=== PATIENT | male | born 1995 | race Caucasian/White ===

== ENCOUNTER 2016-11-17 16:15 | Emergency (ER) | payer BC ==
[~2016-11-17] VITALS: Ht 175.3 cm; Wt 77.2 kg
[2016-11-17 16:22] VITALS: BP 125/77; TEMP 36.7; Ht 175.3 cm; Wt 77.2 kg
[2016-11-17] MEDS ORDERED: DIPHTHERIA/TETANUS/PERTUSSIS 0.5 ML SYR/VIAL IM. ONE (16:45)
[2016-11-17] MEDS ORDERED: XYLOCAINE 1%/SOD BICARB 20 ML VIAL INFIL ONE (16:45)
--- NOTE | 2016-11-17 16:52 | DIAGNOSTIC IMAGING REPORT ---
RIGHT WRIST MIN 3 VIEWS ROUTINE HISTORY: 21 years-old Male acute laceration of the right wrist. COMPARISON: None available TECHNIQUE: 3 views of the right wrist. FINDINGS: There is no acute fracture, dislocation or significant degenerative changes. Mild soft tissue swelling is seen about the wrist. No radiopaque foreign body. Incidental note is made of focal sclerosis/cortical thickening of the medial aspect distal radial shaft, 2.1 x 0.9 cm, likely benign. IMPRESSION: 1. No acute bony abnormality. 2. Mild soft tissue swelling about the wrist without radiopaque foreign body. 3. Incidental note is made of focal sclerosis/cortical thickening of the medial aspect distal radial shaft, 2.1 x 0.9 cm, likely benign. The above report was generated using voice recognition software. It may contain grammatical, syntax or spelling errors. Electronically signed by: Sarbjit Real M.D. 11/17/2016 4:51 PM Dictated Date/Time: 11/17/2016 4:47 PM
[2016-11-17] MEDS ORDERED: CEPH500C PO (17:25)
[2016-11-17] MEDS ORDERED: TRAM-10 PO (17:25)
[2016-11-17 17:34] VITALS: PULSE 80; O2SAT 99
--- NOTE | 2016-11-17 17:41 | EMERGENCY ROOM VISIT NOTE ---
History First contact with patient: 16:26 Chief Complaint: LACERATION/CUT (NON-SUTURE) Stated Complaint: PAINFUL CUT TO RT HAND Nursing Triage Summary: Patient ambulatory to triage with a steady and upright gait, states "I put my right hand through a window on Thursday around lunch time. 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 The patient reports that he was attempting to push up a garage door when the window broke and cut his wrist. He denies any paresthesias or numbness of the hand or fingers. The patient is [id number]. He does not recall when his last tetanus immunization was administered, but believes that it has been less than 10 years. The patient denies any significant bleeding from the wound. Review of Systems 10 system review was performed and was negative except for pertinent positives and negatives as indicated in history of present illness Past Medical/Surgical History Medical Problems: (1) H/O bee sting allergy Family History Gallbladder disease Social History Smoking Status: Current Every Day Smoker Marital Status: single Occupation Status: employed Current/Historical Medications Scheduled Cephalexin Monohydrate (Keflex), 500 MG PO TID Fluoxetine (Prozac), 20 MG PO DAILY Scheduled PRN Tramadol (Ultram), 1-2 TAB PO Q4H PRN for Pain Physical Exam Vital Signs Date Time Temp Pulse Resp B/P (MAP) Pulse Ox O2 Delivery O2 Flow Rate FiO2 11/17/16 17:34 80 16 99 11/17/16 16:22 36.7 98 16 125/77 100 Room Air Physical Exam CONSTITUTIONAL: Healthy and well nourished. Alert and oriented X 3 with positive affect. HEENT: Normocephalic, atraumatic. Pupils equal, round and reactive. NECK: Full active range of motion without discomfort. MUSCULOSKELETAL: Examination shows a 3 cm gaping laceration over the ulnar wrist region. The patient is able to flex and extend all fingers against resistance. Capillary refill of the fingers is less than 2 seconds. The patient has no tenderness to palpation through the carpal canal region. No obvious glass foreign body is noted within the wound. No significant erythema or purulent drainage. INTEGUMENTARY: No rash or other significant dermatologic conditions noted. NEUROLOGIC: No focal neurologic deficits noted. Right hand and fingers are sensory intact. Medical Decision & Procedures ER Provider Diagnostic Interpretation: My interpretation of right wrist x-rays does not show any obvious bony lacerations or obvious radiopaque foreign bodies. Radiologist report is as follows: RIGHT WRIST MIN 3 VIEWS ROUTINE HISTORY: 21 years-old Male acute laceration of the right wrist. COMPARISON: None available TECHNIQUE: 3 views of the right wrist. FINDINGS: There is no acute fracture, dislocation or significant degenerative changes. Mild soft tissue swelling is seen about the wrist. No radiopaque foreign body. Incidental note is made of focal sclerosis/cortical thickening of the medial aspect distal radial shaft, 2.1 x 0.9 cm, likely benign. IMPRESSION: 1. No acute bony abnormality. 2. Mild soft tissue swelling about the wrist without radiopaque foreign body. 3. Incidental note is made of focal sclerosis/cortical thickening of the medial aspect distal radial shaft, 2.1 x 0.9 cm, likely benign. Medications Administered Medications (Trade) Dose Ordered Sig/Kole Route Start Time Stop Time Status Last Admin Dose Admin Diphtheria/ Pertussis/Tetanus Vacc (Adacel Inj) 0.5 ml ONCE ONCE IM. 11/17/16 16:45 11/17/16 16:46 DC 11/17/16 16:46 0.5 ML Procedure Wound exploration was performed under local anesthesia after receiving verbal consent from the patient. Using buffered 1% lidocaine without epinephrine, good local anesthesia was administered. Peripheral tissue was initially cleansed with iodine. Sterile field was created. Using care to avoid trauma to any underlying vasculature or nerves, the wound was probed with no obvious glass foreign body. There did appear to be a small subcutaneous opening at the proximal aspect of the laceration. I was unable to visualize any tendons through this region. It is noted the patient does have worsening pain with passive flexion and extension of the fourth and fifth fingers. The wound was then thoroughly irrigated, then loosely approximated using 4-0 nylon simple interrupted sutures 3. Bacitracin dressing was applied. ED Course Patient history and physical exam were performed. Nurse's notes were reviewed. Vital signs were reviewed and were normal. The patient was administered Adacel IM. X-rays of the right wrist were normal. Wound exploration was performed under local anesthesia, and the wound was grossly approximated using 4 -0 nylon simple interrupted sutures. Because the patient does have notable discomfort with any passive flexion or extension of the fourth and fifth fingers under local anesthesia, I did suggest that he follow-up with orthopedics for further reevaluation and management. The patient was provided contact information for [facility]. He was provided prescriptions for Keflex and Ultram. He was encouraged to alternate ibuprofen and Tylenol for baseline pain relief. A metal splint was applied to the fourth and fifth fingers to the fingers in flexion, and to remind him to minimize use of the hand until reevaluated by orthopedics. The patient was happy with plan of care , voiced understanding of all discharge instructions, and denied any significant pain at the conclusion of my exam. Medical Decision [place] Drug Monitoring Program Search Results: patient reviewed within database Blood Pressure Screening Patient's blood pressure: Normal blood pressure Impression Primary Impression: Laceration of left wrist with tendon involvement Departure Information Prescriptions Tramadol (Ultram) 50 Mg Tab 1-2 TAB PO Q4H Y for Pain, #20 TAB For Initial Treatment Prov: Fabian Amado PA 11/17/16 Cephalexin Monohydrate (Keflex) 500 Mg Cap 500 MG PO TID for 7 Days, #21 CAP Prov: Fabian Amado PA 11/17/16 Referrals Devika Ruth M.D. (MEDICAL) (PCP) Patient Instructions My [facility] Problem Qualifiers Primary Impression: Laceration of left wrist with tendon involvement Encounter type: initial encounter Qualified Codes: S61.512A - Laceration without foreign body of left wrist, initial encounter; S66.922A - Laceration of unspecified muscle, fascia and tendon at wrist and hand level, left hand, initial encounter
[2016-12-03] MEDS ORDERED: FLUO20CA35 PO (14:13)
== END 2016-11-17 17:34 | disposition home or self-care (01) ==
LOC: C.EDB 16:16 → C.EDD 17:34
DX: S61.512A Laceration without foreign body of left wrist, initial encounter (principal); S66.922A Laceration of unspecified muscle, fascia and tendon at wrist and hand level, left hand, initial encounter; W25.XXXA Contact with sharp glass, initial encounter; F17.200 Nicotine dependence, unspecified, uncomplicated; Z23 Encounter for immunization

== ENCOUNTER 2016-11-30 13:29 | Inpatient (IN) | payer BC, OTHER ==
[~2016-11-30] VITALS: Ht 177.8 cm; Wt 78.7 kg
[~2016-11-30 13:29] MED LIST changes: -FLUO20CA35 PO
[2016-11-30] MEDS ORDERED: NALOXONE HCL 0.4 MG/1 ML VIAL/CARP IV STA (14:33)
[2016-11-30 14:38] LABS: BASO % 0.3 %; BASO ABS # 0.02 K/uL (0-0.2); COMPLETE YES; EOS % 2.8 %; HEMATOCRIT 40.7 % (42-52); IG% 0.2 %; LYMPH % 24.4 %; LYMPH ABS # 1.46 K/uL (1.2-3.4); MEAN CELL VOLUME 87.9 fL (80-100); MEAN CORPUSCULAR HEMOGLOBIN 30.2 pg (25-34); MEAN CORPUSCULAR HGB CONC 34.4 g/dl (32-36); MONO % 13.4 %; NEUT % 58.9 %; PLATELET COUNT 163 K/uL (130-400); RED BLOOD COUNT 4.63 M/uL (4.7-6.1); WHITE BLOOD COUNT 5.98 K/uL (4.8-10.8)
[2016-11-30 14:45] LABS: URINE APPEARANCE CLEAR (CLEAR); URINE BILIRUBIN NEG (NEG); URINE COLOR YELLOW; URINE NITRITE NEG (NEG); URINE PH 6.5 (4.5-7.5); URINE SPECIFIC GRAVITY 1.022 (1.000-1.030); UROBILINOGEN NEG (NEG); ZZUR CULT IF INDIC CLEAN CATCH NO
[2016-11-30 14:46] LABS: MANUAL MICROSCOPIC REQUIRED? NO; REVIEW REQ? NO
[2016-11-30 14:59] LABS: BUN/CREATININE RATIO 11.9 (10-20); CALCIUM 9.4 mg/dl (8.5-10.1); CREATININE 0.79 mg/dl (0.60-1.40); POTASSIUM 3.7 mmol/L (3.5-5.1)
[2016-11-30 15:10] LABS: THYROID STIMULATING HORMONE 1.66 uIu/ml (0.300-4.500)
[2016-11-30 15:11] LABS: BENZODIAZEPINE, URINE POS (NEG); COCAINE,URINE NEG (NEG); PHENCYCLIDINE, URINE NEG (NEG)
[2016-11-30 15:28] LABS: ACETAMINOPHEN < 2 ug/ml (10-30)
--- NOTE | 2016-11-30 15:35 | EMERGENCY ROOM VISIT NOTE ---
History Report prepared by Curt: Samantha Taylor Under the Supervision of: Dr. Joan Wolff M.D. 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 The patient has a history of drug abuse. He has been using heroin since last year. He was in rehab earlier this year, but he started using again 4 months ago. He admits to using heroin and Xanax last night around 1000. He states that he had 2-3 bars of Xanax and multiple bags of heroin. He denies any drug use since. He was snorting the drugs. The last time he used IV drugs was 3 weeks ago. This morning, he had a DUI. The police found drug paraphernalia at his house. Just prior to being arrested by the police, his father found him holding a knife to his wrist. The patient does not remember hold the knife to his wrist. The patient denies any suicidal thoughts. Several weeks ago, he told his mother that he was going to kill himself. His girlfriend broke up with him this week. 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 Review of Systems See HPI for pertinent positives & negatives. A total of 10 systems reviewed and were otherwise negative. Past Medical & Surgical Medical Problems: (1) H/O bee sting allergy Family History Gallbladder disease Social History Smoking Status: Heavy Tobacco Smoker Marital Status: single Occupation Status: employed Current/Historical Medications Scheduled Fluoxetine (Prozac), 20 MG PO DAILY Allergies Coded Allergies: BEE STING (Verified Allergy, Intermediate, redness,swelling, 11/17/16) Physical Exam Vital Signs Date Time Temp Pulse Resp B/P (MAP) Pulse Ox O2 Delivery O2 Flow Rate FiO2 11/30/16 17:00 67 10 127/61 96 Room Air 11/30/16 16:00 70 12 131/62 95 Room Air 11/30/16 15:08 79 14 132/65 97 Room Air 11/30/16 14:15 72 11/30/16 13:51 36.6 88 16 165/75 97 Room Air Physical Exam Vital signs reviewed. General: Groggy-appearing male, in no significant distress. HEENT: No scleral icterus, constricted pupils bilaterally, neck supple. Atraumatic. Cardiovascular: Regular rate and rhythm, no extra sounds. Pulmonary: Clear to auscultation bilaterally, normal work of breathing. Abdomen: Soft, nontender, nondistended, positive bowel sounds. Musculoskeletal: Several track oreilly to bilateral upper extremities. No peripheral edema. Neurologic: Patient awake alert and oriented x 3 Skin: Warm, dry, no rash Psych: Patient denies suicidal thoughts, denies homicidal thoughts. Medical Decision & Procedures Laboratory Results 11/30/16 14:26 Red Blood Count 4.63, Mean Corpuscular Volume 87.9, Mean Corpuscular Hemoglobin 30.2, Mean Corpuscular Hemoglobin Concent 34.4, Mean Platelet Volume 12.0, Neutrophils (%) (Auto) 58.9, Lymphocytes (%) (Auto) 24.4, Monocytes (%) (Auto) 13.4, Eosinophils (%) (Auto) 2.8, Basophils (%) (Auto) 0.3, Neutrophils # (Auto ) 3.52, Lymphocytes # (Auto) 1.46, Monocytes # (Auto) 0.80, Eosinophils # (Auto ) 0.17, Basophils # (Auto) 0.02 11/30/16 14:26 Test 11/30/16 14:13 11/30/16 14:26 Urine Color YELLOW Urine Appearance CLEAR (CLEAR) Urine pH 6.5 (4.5-7.5) Urine Specific [place] 1.022 (1.000-1.030) Urine Protein NEG (NEG) Urine Glucose (UA) NEG (NEG) Urine Ketones NEG (NEG) Urine Occult Blood NEG (NEG) Urine Nitrite NEG (NEG) Urine Bilirubin NEG (NEG) Urine Urobilinogen NEG (NEG) Urine Leukocyte Esterase NEG (NEG) Urine Opiates Screen POS (NEG) Urine Methadone, Qualitative NEG (NEG) Urine Barbiturates NEG (NEG) Urine Phencyclidine (PCP) Level NEG (NEG) Ur Amphetamine/Methamphetamine NEG (NEG) MDMA (Ecstasy) Screen NEG (NEG) Urine Benzodiazepines Screen POS (NEG) Urine Cocaine Metabolite NEG (NEG) Urine Marijuana (THC) NEG (NEG) White Blood Count 5.98 K/uL (4.8-10.8) Red Blood Count 4.63 M/uL (4.7-6.1) Hemoglobin 14.0 g/dL (14.0-18.0) Hematocrit 40.7 % (42-52) Mean Corpuscular Volume 87.9 fL (80-100) Mean Corpuscular Hemoglobin 30.2 pg (25-34) Mean Corpuscular Hemoglobin Concent 34.4 g/dl (32-36) Platelet Count 163 K/uL (130-400) Mean Platelet Volume 12.0 fL (7.4-10.4) Neutrophils (%) (Auto) 58.9 % Lymphocytes (%) (Auto) 24.4 % Monocytes (%) (Auto) 13.4 % Eosinophils (%) (Auto) 2.8 % Basophils (%) (Auto) 0.3 % Neutrophils # (Auto) 3.52 K/uL (1.4-6.5) Lymphocytes # (Auto) 1.46 K/uL (1.2-3.4) Monocytes # (Auto) 0.80 K/uL (0.11-0.59) Eosinophils # (Auto) 0.17 K/uL (0-0.5) Basophils # (Auto) 0.02 K/uL (0-0.2) RDW Standard Deviation 41.5 fL (36.4-46.3) RDW Coefficient of Variation 13.0 % (11.5-14.5) Immature Granulocyte % (Auto) 0.2 % Immature Granulocyte # (Auto) 0.01 K/uL (0.00-0.02) Anion Gap 4.0 mmol/L (3-11) Est Creatinine Clear Calc Drug Dose 154.0 ml/min Estimated GFR () 149.8 Estimated GFR (Non- 129.3 BUN/Creatinine Ratio 11.9 (10-20) Calcium Level 9.4 mg/dl (8.5-10.1) Total Bilirubin 0.7 mg/dl (0.2-1) Direct Bilirubin 0.2 mg/dl (0-0.2) Aspartate Amino Transf (AST/SGOT) 25 U/L (15-37) Alanine Aminotransferase (ALT/SGPT) 24 U/L (12-78) Alkaline Phosphatase 83 U/L (45-117) Total Protein 6.7 gm/dl (6.4-8.2) Albumin 3.4 gm/dl (3.4-5.0) Thyroid Stimulating Hormone (TSH) 1.660 uIu/ml (0.300-4.500) Salicylates Level < 1.7 mg/dl (2.8-20) Acetaminophen Level < 2 ug/ml (10-30) Ethyl Alcohol mg/dL < 3.0 mg/dl (0-3) Laboratory results per my review. Medications Administered Medications (Trade) Dose Ordered Sig/Kole Route Start Time Stop Time Status Last Admin Dose Admin Naloxone HCl (Narcan Inj) 0.4 mg NOW STAT IV 11/30/16 14:33 11/30/16 14:34 DC 11/30/16 15:06 0.4 MG ED Course 1431: Past medical records reviewed. The patient was evaluated in room A7. A complete history and physical examination was performed. 1433: Narcan Inj 0.4 mg IV. 1734: The patient has a signed 302 statement on his chart. He is still sleeping even after the Narcan. 1800: The patient was signed out to Dr. Zuleta at the end of my shift. Medical Decision Differential diagnosis: Etiologies such as mood disorder, infection, hypoglycemia, electrolyte abnormalities, cardiac sources, intracerebral event, toxicologic, neurologic, as well as others were entertained. This patient was evaluated and appeared to be intoxicated. He admits to a combination of Xanax, methamphetamine and heroin overnight. Patient was given Narcan 0.4 mg IV without significant improvement. Laboratory work is fairly unrevealing. Patient was observed in the ER for the better part of 4 hours without significant improvement. He does wake up and answer questions appropriately however he falls asleep quickly. I do suspect that this is polysubstance abuse. At this time a petitioning statement was filed as the patient's had a knife to his wrist and has threatened suicidal action earlier this week. Upon further detox, the patient will be assessed from a mental health standpoint. Case will be signed out to Dr. Zuleta at the change of shift, please see his notes for final disposition. Medication Reconcilliation Current Medication List: was personally reviewed by me Blood Pressure Screening Patient's blood pressure: Normal blood pressure Blood pressure disposition: Did not require urgent referral Impression Primary Impression: Suicide gesture Additional Impression: Polysubstance abuse Scribe Attestation The scribe's documentation has been prepared under my direction and personally reviewed by me in its entirety. I confirm that the note above accurately reflects all work, treatment, procedures, and medical decision making performed by me. Departure Information Dispostion Still a Patient Referrals No Doctor, Assigned (PCP) Patient Instructions My [facility] Problem Qualifiers
[2016-11-30] MEDS ORDERED: FLUO20CA35 PO (17:03)
--- NOTE | 2016-11-30 20:42 | EMERGENCY ROOM VISIT NOTE ---
ED Visit Note First contact with patient: 18:15 This patient was initially seen by Dr. Wolff. The patient was brought here for suicidal ideation. He is awake and alert at this time. He does admit to using heroin and Xanax. 3 S. was unwilling to admit the patient initially until he was hospitalized through the medical service due to potential opiate withdrawal. I did discuss the case with Dr. Hines who will hospitalize the patient. Psychiatry will evaluate him on the floor.
[2016-11-30 21:25] VITALS: BP 122/72; PULSE 69; TEMP 36.3; O2SAT 96; Ht 177.8 cm; Wt 78.7 kg
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
[2016-11-30] MEDS ORDERED: ACETAMINOPHEN 325 MG TAB PO PRN (22:00)
[2016-11-30] MEDS ORDERED: ONDANSETRON INJ 2 MG/ML 2 ML VIAL IV PRN (22:00)
[2016-11-30] MEDS: NSS + 20MEQ KCL 1000ML 1,000 ML IV SCH (22:19)
[2016-11-30 23:05] VITALS: BP 112/65; PULSE 64; TEMP 36.3; O2SAT 95
[2016-12-01 03:01] VITALS: BP 112/63; PULSE 56; TEMP 36.6; O2SAT 95
[2016-12-01] MEDS: NSS + 20MEQ KCL 1000ML 1,000 ML IV SCH ×2 (06:00→14:09)
[2016-12-01 06:23] LABS: BASO % 0.4 %; BASO ABS # 0.02 K/uL (0-0.2); COMPLETE YES; EOS % 4.1 %; HEMATOCRIT 43.3 % (42-52); IG% 0.2 %; LYMPH ABS # 1.39 K/uL (1.2-3.4); MEAN CORPUSCULAR HEMOGLOBIN 28.9 pg (25-34); MEAN CORPUSCULAR HGB CONC 32.1 g/dl (32-36); MEAN PLATELET VOLUME 12.3 fL (7.4-10.4); MONO % 16.4 %; NEUT % 48.9 %; PLATELET COUNT 175 K/uL (130-400); RED BLOOD COUNT 4.81 M/uL (4.7-6.1); WHITE BLOOD COUNT 4.64 K/uL (4.8-10.8)
--- NOTE | 2016-12-01 06:41 | DIAGNOSTIC IMAGING REPORT ---
CT OF THE HEAD WITHOUT CONTRAST CLINICAL HISTORY: Head injury. Evaluate for bleed. COMPARISON STUDY: Head CT February 02, 2012. CT DOSE: 537.48 mGy.cm TECHNIQUE: Helical axial images of the head were obtained without IV contrast. Automated exposure control was utilized for the study. A dose lowering technique was utilized adhering to the principles of ALARA. FINDINGS: No acute intracranial hemorrhage, midline shift or mass effect is present. Brain volume is normal. Ventricular system is normal. Basilar cisterns are patent. There are no extra-axial collections. Lockhart-white differentiation is maintained. There is no calvarial fracture. IMPRESSION: 1. No acute intracranial findings. 2. No calvarial fracture. Electronically signed by: Chad Self M.D. 12/01/2016 6:40 AM Dictated Date/Time: 12/01/2016 6:38 AM
[2016-12-01 07:00] LABS: BUN/CREATININE RATIO 14.4 (10-20); CALCIUM 8.6 mg/dl (8.5-10.1); CREATININE 0.79 mg/dl (0.60-1.40); MAGNESIUM 1.9 mg/dl (1.8-2.4); POTASSIUM 3.8 mmol/L (3.5-5.1)
--- NOTE | 2016-12-01 07:00 | DIAGNOSTIC IMAGING REPORT ---
CHEST ONE VIEW PORTABLE CLINICAL HISTORY: 21 years-old Male presenting with drug overdose. TECHNIQUE: Portable upright view of the chest was obtained. COMPARISON: 04/23/2014. FINDINGS: Cardiomediastinal silhouette normal. Lungs and pleural spaces clear. Osseous structures normal. Upper abdomen normal. IMPRESSION: 1. No acute cardiopulmonary disease. Electronically signed by: Michael Allan M.D. 12/01/2016 6:58 AM Dictated Date/Time: 12/01/2016 6:57 AM
[2016-12-01 07:01] VITALS: BP 107/65; PULSE 82; TEMP 36.8; O2SAT 94
[2016-12-01 07:02] VITALS: BP 109/63; PULSE 57; TEMP 36.4; O2SAT 96
[2016-12-01 07:02] LABS: PHOSPHORUS 4.2 mg/dl (2.5-4.9)
--- NOTE | 2016-12-01 07:21 | DIAGNOSTIC IMAGING REPORT ---
CERVICAL SPINE 2 OR 3 VIEWS CLINICAL HISTORY: 21 years-old Male presenting with r/o injury, drug overdose. TECHNIQUE: Lateral, frontal, and open-mouth odontoid views of the cervical spine were obtained. COMPARISON: CT cervical spine from 2011. FINDINGS: The C7 vertebral body is fully visualized. Normal cervical lordosis. Vertebral bodies maintain normal height and alignment. Intervertebral disc spaces preserved. No radiographic evidence of acute fracture or subluxation. Normal predental interval. Lateral masses of C1 articulate normally with C2. No prevertebral soft tissue swelling. Lung apices clear. IMPRESSION: No radiographic evidence of acute osseous injury. Electronically signed by: Michael Allan M.D. 12/01/2016 7:19 AM Dictated Date/Time: 12/01/2016 7:17 AM
[2016-12-01 10:46] VITALS: BP 117/67; PULSE 61; TEMP 36.7; O2SAT 97
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
[2016-12-01 14:57] VITALS: BP 117/67; PULSE 61; TEMP 36.7; O2SAT 97
[2016-12-03 13:45] LABS: COD UR 463 NG/ML (CUTOFF=50); HYDROCOD UR NEGATIVE NG/ML (CUTOFF=50); HYDROMOR UR 111 NG/ML (CUTOFF=50); HYDROXYETHYLFLURAZEPAM CONF NEGATIVE NG/ML (CUTOFF=50); HYDROXYMIDAZOLAM NEGATIVE NG/ML (CUTOFF=50); HYDROXYTRIAZOLAM CONF NEGATIVE NG/ML (CUTOFF=50); MORPHINE UR >20000 NG/ML (CUTOFF=50); NORHYDROCODONE CONF UR NEGATIVE NG/ML (CUTOFF=50); OXYMORPH UR NEGATIVE NG/ML (CUTOFF=50); TEMAZEPAM CONF NEGATIVE NG/ML (CUTOFF=50)
[2016-12-03] MEDS ORDERED: FLUO20CA35 PO (14:13)
[2016-12-09 08:31] LABS: SYNTHETIC CANNABINOIDS QL URIN NEGATIVE (Negative)
== END 2016-12-01 19:00 | disposition home or self-care (01) | DRG 880 ==
LOC: EDBD 13:29 → C.EDA 13:30 → C.2T 20:32 → ENRESERV 20:44 → C.MED 12-01 13:52
PROVIDERS: ADMIT Internal Medicine; ATTEND Hospitalist
DX: R45.851 Suicidal ideations (principal); F17.200 Nicotine dependence, unspecified, uncomplicated; F19.10 Other psychoactive substance abuse, uncomplicated

== ENCOUNTER → 2016-11-30 | Outpatient (CLI) | payer OTHER ==
[~2016-11-30] MED LIST: FLUO20CA35 PO; TRAM-10 PO
== END | disposition home or self-care (01) ==
LOC: C.LAB 05:56
DX: Z02.83 Encounter for blood-alcohol and blood-drug test (principal)

== ENCOUNTER 2016-12-01 19:00 | Inpatient (IN) | payer BC ==
[~2016-12-01] VITALS: Ht 177.8 cm; Wt 79.7 kg
[~2016-12-01 19:00] MED LIST changes: +FLUO20CA35 PO; -TRAM-10 PO
[2016-12-01] MEDS ORDERED: ACETAMINOPHEN 325 MG TAB PO PRN (19:30)
[2016-12-01] MEDS ORDERED: MAGNESIUM HYDROXIDE SUSP 30 ML UDC PO PRN (19:30)
[2016-12-01] MEDS ORDERED: BISMUTH SUBSALICYLATE PER ML OMNICELL CHARGE PO PRN (19:30)
[2016-12-01] MEDS ORDERED: NURSING VERBAL MED ORDER ONE ×2 (19:30→19:45)
[2016-12-01] MEDS ORDERED: SODIUM CHLORIDE 0.65% NA SOLN 45 ML (OCEAN) PRN (19:30)
[2016-12-01] MEDS ORDERED: hydrOXYzine HCL 25 MG TAB PO PRN ×2 (19:30)
[2016-12-01] MEDS ORDERED: ALUMINUM/MAGNESIUM SUSP 30 ML UDC PO PRN (19:30)
[2016-12-01] MEDS ORDERED: CLONIDINE HCL 0.1 MG TAB PO PRN (19:30)
[2016-12-01 19:44] VITALS: BP 128/78; PULSE 65; TEMP 36.5; Ht 177.8 cm; Wt 79.7 kg
[2016-12-01 20:29] VITALS: BP 132/87; PULSE 73
[2016-12-01] MEDS: CLONIDINE HCL 0.1 MG TAB PO SCH (20:31)
[2016-12-01] MEDS ORDERED: NICOTINE 21 MG/24 HR TDSY EXT ONE (21:15)
[2016-12-01] MEDS: NICOTINE POLACRILEX 2 MG GUM MT PRN (21:18)
[2016-12-02 07:02] VITALS: BP_SYST 124; BP_SYST 126; BP_DIAS 71; BP_DIAS 80; PULSE 67; PULSE 86; TEMP 36.6
[2016-12-02] MEDS ORDERED: LORAZEPAM 1 MG TAB PO PRN (08:45)
[2016-12-02] MEDS ORDERED: GABAPENTIN 600 MG TAB PO SCH (08:45)
[2016-12-02] MEDS: FLUOXETINE HCL 20 MG CAP PO SCH (09:07)
[2016-12-02] MEDS: NICOTINE 21 MG/24 HR TDSY EXT SCH (09:07)
[2016-12-02] MEDS: CLONIDINE HCL 0.1 MG TAB PO SCH ×4 (09:07→20:30)
[2016-12-02 09:08] VITALS: BP 133/71; PULSE 90; TEMP 36.6
[2016-12-02] MEDS ORDERED: GABAPENTIN 1200MG LOADING DOSE PO ONE (09:30)
[2016-12-02 12:23] VITALS: BP 132/74; PULSE 96; TEMP 36.6
[2016-12-02] MEDS: NICOTINE POLACRILEX 2 MG GUM MT PRN ×2 (13:46→20:34)
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
[2016-12-02 16:11] VITALS: BP_SYST 145; BP_SYST 146; BP_DIAS 74; BP_DIAS 95; PULSE 79; TEMP 37
[2016-12-02] MEDS: GABAPENTIN 600MG Q6H DOSE PO SCH ×2 (16:13→20:29)
[2016-12-02] MEDS: DIPHENOXYLATE/ATROPINE 2.5/0.025MG TAB PO PRN ×2 (16:14→20:30)
[2016-12-02 20:23] VITALS: BP 130/74; PULSE 77; TEMP 36.8
[2016-12-03] MEDS: GABAPENTIN 600MG Q8H DOSE PO SCH ×2 (05:38→13:35)
[2016-12-03 06:53] VITALS: BP_SYST 121; BP_SYST 122; BP_DIAS 68; BP_DIAS 73; PULSE 44; PULSE 71; TEMP 36.8
[2016-12-03] MEDS: CLONIDINE HCL 0.1 MG TAB PO SCH ×2 (08:58→12:19)
[2016-12-03] MEDS: NICOTINE 21 MG/24 HR TDSY EXT SCH (08:58)
[2016-12-03] MEDS: DIPHENOXYLATE/ATROPINE 2.5/0.025MG TAB PO PRN (08:59)
[2016-12-03] MEDS: FLUOXETINE HCL 20 MG CAP PO SCH (08:59)
[2016-12-03 09:00] VITALS: BP 125/80; PULSE 86; TEMP 36.6
--- NOTE | 2016-12-03 10:47 | Psychiatric Progress Notes ---
Progress Note Date of Service Dec 03, 2016. Interval History Steve Vega is a 21-year-old male who currently lives in [place], has a history of depression and polysubstance abuse (benzos and heroin), and was admitted on 302 involuntary commitment from the medical floor after he was brought to the ED by the police for AMS after taking large amounts of Xanax and heroin. Chief Complaint "Tired". Subjective Patient was seen & assessed interval progress reviewed with Treatment Team. Staff report he rates his mood and 8 out of 10, but appears flat, and spent most of the shift in his bed. He remains willing for rehabilitation, and would like to return to [facility]. He has a family meeting scheduled with his parents this morning, and they visited last evening, and he felt it went well. This morning, he is seen in his bed, as he states he is not feeling well and is having withdrawal symptoms. He was able to eat breakfast, and denies vomiting. He reports diarrhea, shakes, cold sweats, and fatigue. He states the as needed medications are helping with his symptoms. Sleep was "pretty good." He states his mood is improved, "more hopeful." He denies suicidal thoughts, and is hopeful that he will be accepted at rehabilitation. Sleep Information Total Hours of Sleep: 6.50 Meal Information Percent of Breakfast Consumed: 100 Percent of Lunch Consumed: 100 Percent of Dinner Consumed: 75 Mental Status Exam During interview pt is: alert and oriented, cooperative Appearance: appropriately dressed, appropriately groomed Eye contact is: fair Motor behavior is: no abnormal motor movements Speech: normal in rate, rhythm & volume Affect: depressed, constricted Mood is: depressed, other ("getting better, more hopeful") Thought process: goal directed Thought content: reality based without delusions Suicidal thought are: denied Homicidal thoughts are: denied Hallucinations: denies auditory, denies visual Cognition: language grossly intact, other (memory is impaired for events during intoxication) Intelligence estimated to be: average Insight: fair Judgement: fair Impression 21-year-old single white male from [place] who has a history of depression and substance abuse and presents after making suicidal statements in the context of benzodiazepine and heroin intoxication and new criminal charges. He is being treated for opiate withdrawal here, and has been continued on fluoxetine, which was recently increased. He has numerous stressors, including a recent breakup with his girlfriend, was fired from his job, and legal issues. Inpatient psychiatric care is appropriate at this time in order to keep him safe and away from substances while arranging transfer to inpatient rehabilitation to address his addictions. He has consistently denied suicidality since admission to the hospital on 11/30/2016, is cooperating with treatment, and is willing to go to inpatient substance abuse treatment. He is appropriate for transfer to rehabilitation as soon as a bed can be secured, but is not appropriate for discharge to the community, as he would not have adequate supports there to maintain sobriety. Plan (1) Opiate abuse, continuous clonidine protocol for opiate withdrawal. Inpatient rehab (2) Benzodiazepine abuse AWSS protocol. (3) Depression Patient was admitted to a locked unit with every 15 minute safety checks suicide precautions. Patient will need a family meeting. Guns will need to be secured both at his parent's home and grandparents houses before patient can go home from treatment. Patient is agreeable to continue Prozac 20 mg. Reviewed risks benefits and alternatives for this medication as well as the black box warning for suicidality in adolescents and young adults. Patient is encouraged to participate in unit programming during his time here as best that he can. 12/03 - family meeting with parents today, need to review recommendations to secure guns and sure he will not have access to them, as well as recommendations for inpatient rehabilitation. Visit Code E&M Code: 75993 Inventory Assets Strengths: willing for treatment, supportive family Needs: inpatient rehab Risk Factors Assessment Male: Yes : Yes /single/: Yes Health problems: No Mental Health Diagnoses: Yes Substance use disorders: No Previous attempt: No Smoker: Yes Protective Factors Assessment Moravian beliefs: No : No Responsible for young children: No Employed: No Stable relationships: Yes Supportive family: Yes Data Vital Signs Last 24 Hrs: Date Time Temp Pulse Resp B/P (MAP) Pulse Ox O2 Delivery O2 Flow Rate FiO2 12/03/16 09:00 36.6 86 16 125/80 12/03/16 06:53 36.8 44 16 122/68 71 121/73 12/02/16 20:23 36.8 77 16 130/74 12/02/16 16:11 37.0 79 16 145/74 12/02/16 12:23 36.6 96 18 132/74 Meds Administered Last 24 Hrs: Meds Administered (Past 24Hrs) Medications (Trade) Dose Ordered Sig/Kole Route Start Time Stop Time Status Last Admin Dose Admin Clonidine HCl (Catapres Tab) 0.1 mg Q4HWA PO 12/01/16 20:00 12/31/16 19:59 12/03/16 08:58 0.1 MG Diphenoxylate HCl/ Atropine (Lomotil Tab) 1 tab Q4H PRN PO 12/01/16 19:30 12/31/16 19:29 12/03/16 08:59 1 TAB Hydroxyzine HCl (Vistaril Tab) 50 mg HSZ PRN PO 12/01/16 19:30 12/31/16 19:29 12/02/16 20:31 50 MG Fluoxetine HCl (Prozac Cap) 20 mg DAILY PO 12/02/16 09:00 01/01/17 08:59 12/03/16 08:59 20 MG Nicotine (Nicoderm Cq 21MG Patch) 1 patch QAM EXT 12/02/16 09:00 01/01/17 08:59 12/02/16 09:07 1 PATCH Miscellaneous (Remove Nicoderm Patch) 1 ea QAM N/A 12/02/16 09:00 01/01/17 08:59 12/03/16 08:58 1 EA Nicotine (Nicoderm Cq 21MG Patch) 1 patch EXTRA DOSE ONCE EXT 12/01/16 21:15 12/01/16 21:16 DC 12/01/16 21:16 1 PATCH Nicotine Polacrilex (Nicorette 2MG Gum) 2 piece Q1H PRN MT 12/01/16 21:15 12/31/16 21:14 12/02/16 20:34 2 PIECE Gabapentin (Neurontin Tab) 1,200 mg TODAY@0930 ONCE PO 12/02/16 09:30 12/02/16 09:31 DC 12/02/16 09:31 1,200 MG Gabapentin (Neurontin Tab) 600 mg Q6H PO 12/02/16 15:30 12/02/16 21:31 DC 12/02/16 20:29 600 MG Gabapentin (Neurontin Tab) 600 mg Q8H PO 12/03/16 05:30 12/03/16 21:31 12/03/16 05:38 600 MG
[2016-12-03 12:19] VITALS: BP 118/68; PULSE 86; TEMP 36.4
[2016-12-03] MEDS ORDERED: FLUO20CA35 PO (14:13)
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
[2016-12-03 14:47] VITALS: BP 118/68; PULSE 86; TEMP 36.4
[2016-12-04] MEDS ORDERED: GABAPENTIN 600MG Q12H DOSE PO SCH (09:30)
[2016-12-05] MEDS ORDERED: GABAPENTIN 600MG X1 DOSE PO SCH (09:30)
== END 2016-12-03 15:47 | DRG 881 ==
LOC: C.MHU 19:00
PROVIDERS: ADMIT Psychiatry & Neurology Psychiatry; ATTEND Psychiatry & Neurology Psychiatry
DX: F32.9 Major depressive disorder, single episode, unspecified (principal); R45.851 Suicidal ideations; Z79.899 Other long term (current) drug therapy; Z81.8 Family history of other mental and behavioral disorders; F17.200 Nicotine dependence, unspecified, uncomplicated; F11.10 Opioid abuse, uncomplicated